=== PATIENT | female | born 1995 | race Two or more races ===

== ENCOUNTER 2018-05-02 13:25 | Emergency (ER) | payer BC ==
[~2018-05-02] VITALS: Ht 180.3 cm; Wt 70.9 kg
[2018-05-02 13:45] VITALS: BP 115/79
[2018-05-02] MEDS ORDERED: SODIUM CHLORIDE 0.9% 1,000 ML IV ONE (13:49)
[2018-05-02] MEDS ORDERED: ACETAMINOPHEN 500 MG TABLET PO ONE (14:00)
[2018-05-02] MEDS ORDERED: ONDANSETRON ODT 4 MG PO ONE (14:00)
[2018-05-02 14:49] LABS: BASOPHILS # (AUTO) 0.03 x10^3/uL (0-0.1); BASOPHILS % (AUTO) 0 % (0-1); EOSINOPHILS # (AUTO) 0.03 x10^3/uL (0-0.4); EOSINOPHILS % (AUTO) 0 % (1-7); LYMPHOCYTES # (AUTO) 1.62 x10^3/uL (1-3.4); LYMPHOCYTES % (AUTO) 15 % (22-44); MD NO; MEAN CORPUSCULAR HEMOGLOBIN 32.3 pg (27.0-34.8); MEAN CORPUSCULAR HGB CONC 34.1 g/dL (32.4-35.8); MEAN CORPUSCULAR VOLUME 94.8 fL (80-100); MEAN PLATELET VOLUME 8.7 fL (7.4-10.4); MONOCYTES # (AUTO) 0.52 x10^3/uL (0.2-0.8); MONOCYTES % (AUTO) 5 % (2-9); NEUTROPHILS # (AUTO) 8.53 x10^3/uL (1.8-6.8); NEUTROPHILS % (AUTO) 80 % (42-75); PLATELET COUNT 260 x10^3/uL (130-400); RED BLOOD COUNT 4.11 x10^6/uL (3.82-5.3); RED CELL DISTRIBUTION WIDTH 13.6 % (9.6-15.2)
[2018-05-02 14:57] LABS: ALANINE AMINOTRANSFERASE 11 U/L (12-78); ALBUMIN 3.1 g/dL (3.4-5.0); ANION GAP 7 mmol/L (5-15); CALCIUM 8.5 mg/dL (8.5-10.1); CHLORIDE 106 mmol/L (98-107); CREATININE 0.61 mg/dL (0.55-1.02)
[2018-05-02 15:16] LABS: ALKALINE PHOSPHATASE 59 U/L (45-117); BILIRUBIN,TOTAL 0.6 mg/dL (0.2-1.0); TOTAL PROTEIN 7.5 g/dL (6.4-8.2)
[2018-05-02] MEDS ORDERED: ONDANSETRON ODT 4 MG ONE (16:11)
[2018-05-02] MEDS ORDERED: ACETAMINOPHEN 500 MG TABLET ONE (16:11)
[2018-05-02] MEDS ORDERED: CA C1TAB60 PO (16:29)
[2018-05-02] MEDS ORDERED: ACET325T14 PO (16:29)
[2018-05-02] MEDS ORDERED: PREN1TAB79 PO (16:30)
[2018-05-02 16:42] LABS: MICROSCOPIC NOT IND
[2018-05-02 17:02] LABS: CULTURE INDICATED? NO
== END 2018-05-02 19:07 | disposition home or self-care (01) ==
LOC: ED 18:05
DX: O26.892 Other specified pregnancy related conditions, second trimester (principal); R19.7 Diarrhea, unspecified; R11.0 Nausea; R10.32 Left lower quadrant pain; R50.9 Fever, unspecified; R30.0 Dysuria; Z3A.18 18 weeks gestation of pregnancy
CPT/HCPCS: 36415; 76815; 80053; 81003; 84702; 85025; 86901; 96360; 99285; J7030; Q0162